=== PATIENT | male | born 1980 | race Two or more races ===

== ENCOUNTER → 2020-05-10 | Emergency (ER) | payer MEDICAID, OTHER ==
[~2020-05-10] VITALS: Ht 167.6 cm; Wt 81.6 kg
[~2020-05-10] MED LIST: ATROPINE SULFATE 1 MG/1 ML VIAL ONE
[2020-05-10 20:56] VITALS: BP 114/75
== END | disposition short-term general hospital (02) ==
LOC: ER 17:54 → EDBD 17:54
DX: S06.6X0A Traumatic subarachnoid hemorrhage without loss of consciousness, initial encounter (principal); S06.5X0A Traumatic subdural hemorrhage without loss of consciousness, initial encounter; W18.09XA Striking against other object with subsequent fall, initial encounter; Y93.89 Activity, other specified; Y92.89 Other specified places as the place of occurrence of the external cause; Y99.8 Other external cause status
CPT/HCPCS: 70450; 72125